=== PATIENT | male | born 1955 | race Caucasian/White ===

== ENCOUNTER 2019-11-20 08:13 | Day surgery (SDC) | payer OTHER ==
[2019-11-19 12:13] VITALS: BMI 26.4
[2019-11-20] MEDS ORDERED: ROCURONIUM BROMIDE 50 MG/5 ML SYRINGE ONE (10:29)
[2019-11-20] MEDS ORDERED: LIDOCAINE HCL 1%, 10 MG/ML (20ML VIAL) ONE (10:30)
[2019-11-20] MEDS ORDERED: ceFAZolin SODIUM 1 GM VIAL IVPB ONE (10:35)
[2019-11-20] MEDS ORDERED: PROPOFOL 20 ML ONE (11:27)
[2019-11-20] MEDS ORDERED: NEOSTIGMINE METHYLSULFATE 0.5 MG/ML - 10 ML MDV ONE (11:27)
[2019-11-20] MEDS ORDERED: oxyCODONE HCL 5 MG TABLET PO PRN (11:49)
--- NOTE | 2019-11-20 11:52 | OP ---
Operative Note - Note: Operative Date: 11/20/19 Pre-Operative Diagnosis: large bladder tumor Operation: TURBT Post-Operative Diagnosis: Same as Pre-op Surgeon: Tate oFng Anesthesia: General Specimens Removed: bladder tumor Operative Report Dictated: Yes
[2019-11-20] MEDS ORDERED: DEXTROSE 5%-0.45% SALINE 1,000 ML IV SCH (12:00)
[2019-11-20] MEDS ORDERED: ONDANSETRON 4 MG/2 ML VIAL IVPUSH PRN (13:27)
[2019-11-20 14:04] VITALS: BP 110/58; PULSE 58; TEMP 97.5
--- NOTE | 2019-11-20 16:18 | OP ---
DATE OF OPERATION: 11/20/2019 PREOPERATIVE DIAGNOSIS: Large bladder tumor. POSTOPERATIVE DIAGNOSIS: Large bladder tumor. PROCEDURE: Transurethral resection of bladder tumor. SURGEON: Jack Pena MD INDICATION: Patient is a 63-year-old male with gross hematuria, noted to have a large bladder tumor on cystoscopy, confirmed with CT scan. He was taken to the OR for resection. DESCRIPTION OF PROCEDURE: Patient taken to the OR, placed supine on the OR table. Cardiac monitoring administered. General anesthesia was established. He was prepped and draped in dorsal lithotomy position. The rigid cystoscope was inserted into the urethra without difficulty. The meatus had to be dilated first. The resectoscope was inserted with the visual obturator. After dilating the meatus, the rest of the pendulous urethra appeared normal. Prostatic urethra was 3 cm and visually occlusive. Bladder was visualized. A very large bladder tumor was seen occupying the entire right side of the bladder from the trigone up the sides of the bladder and including the anterior wall. It also reached over a little bit to the left side of the bladder as well to the point that not only could the right ureteral orifice not be visualized, but the left ureteral orifice could not be visualized either. At this point, then using the bipolar resector loop, the bladder tumor was resected in its entirety until muscle fibers were visualized. All tumor tissue was sent to pathology for analysis. The UO was never really visualized on the right or left side upon completion. Resection was not carried out aggressively on the patient's left trigone to avoid scarring of the UO on that side. After complete resection, All the tumor chips were removed and sent to pathology for analysis. All bleeding sites were fulgurated. Hernandez catheter was then placed to straight drainage. [place]embine-tinged urine was retrieved. Patient was awoken from anesthesia and transferred to recovery room in stable condition. There were no complications. Estimated blood loss was minimal. JACK PENA M.D. LUZ [id number]
--- NOTE | 2019-11-25 09:17 | PATH ---
Surgical Pathology Report Patient Name: YARY MIRAMONTES [facility]. Rec. #: [id number] /Age/Gender: 1955 (Age: 63) / M Account: [id number] Location: [facility] SURGICAL Taken: 11/20/2019 Received: 11/20/2019 Reported: 11/25/2019 Physicians: Tate Fong M.D. Specimen(s) Received BLADDER TUMOR Clinical History Bladder tumor Final Diagnosis BLADDER TUMOR, EXCISION: INVASIVE UROTHELIAL CARCINOMA, HIGH GRADE. TUMOR INVADES INTO MUSCULARIS PROPRIA. Intradepartmental case reviewed with concordance on diagnosis. This case was discussed with Dr. Fong On November 25, 2019. Electronically Signed Isabel Mcclellan M.D. Gross Description Received in formalin labeled "bladder tumor," is a 4.0 x 3.0 x 0.3 cm aggregate of heaton soft tissue fragments. The formalin is filtered and the specimen is entirely submitted in 3 cassettes. /11/20/2019 saudi/11/20/2019
== END 2019-11-20 14:00 | disposition home or self-care (01) ==
LOC: JASU-SURG 08:13
PROVIDERS: ATTEND Urology
PROC: 0TBB8ZX Excision of Bladder, Via Natural or Artificial Opening Endoscopic, Diagnostic (ICD-10-PCS; principal; 2019-11-20 10:30)
DX: D49.4 Neoplasm of unspecified behavior of bladder (principal)
CPT/HCPCS: 88305-TC; 94760